=== PATIENT | male | born 1960 | race Caucasian/White ===

== ENCOUNTER 2021-09-27 15:12 | Emergency (ER) | payer OTHER, MEDICARE ==
[2021-09-27 15:40] LABS: HEMOGLOBIN 16.2 gm/dl (14.0-17.5); RED BLOOD COUNT 5.18 M/UL (4.20-5.50); WHITE BLOOD COUNT 15.1 K/UL (4.5-11.0)
[2021-09-27 16:38] LABS: BUN/CREATININE RATIO 12 (0-10)
[2021-09-27] MEDS ORDERED: ZANAFLEX4 MG PO (17:34)
== END 2021-09-27 17:47 | disposition home or self-care (01) ==
LOC: ER1 15:12
PROVIDERS: Physician Assistant
DX: S39.012A Strain of muscle, fascia and tendon of lower back, initial encounter (principal); I10 Essential (primary) hypertension; Z87.891 Personal history of nicotine dependence; V43.52XA Car driver injured in collision with other type car in traffic accident, initial encounter; Y92.410 Unspecified street and highway as the place of occurrence of the external cause
CPT/HCPCS: 72125; 72128; 72131; 80053; 85025; 93005; 96374; 96375; 99284; J1885; J2270; J2405